=== PATIENT | male | born 1980 | race Hispanic/Latino ===

== ENCOUNTER 2017-01-04 15:23 | Emergency (ER) | payer SELFPAY ==
[~2017-01-04] VITALS: Ht 182.9 cm; Wt 159.1 kg
[~2017-01-04 15:23] MED LIST: HYDR-3090 PO; METH-313 PO; NAPR500T PO; NOMED
[2017-01-04 15:33] VITALS: BP 137/84; PULSE 116; RESP 20; O2SAT 98
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
[2017-01-04 16:00] LABS: BASOPHILS % (AUTO) 0.2 % (0-3); EOSINOPHILS % (AUTO) 0.3 % (0-5); Mean Corpuscular Hemoglobin 29.3 pg (27.0-35.0); Mean Corpuscular Volume 85.6 fL (81-100); NEUTROPHILS % (AUTO) 74.8 % (40-74); Platelet Count 179 bil/L (150-400)
[2017-01-04 16:22] LABS: Magnesium 1.8 mg/dL (1.6-2.6)
[2017-01-04 16:52] VITALS: PULSE 96; RESP 20; O2SAT 98
[2017-01-04 19:19] VITALS: BP 157/104; PULSE 92; RESP 16; O2SAT 99
== END 2017-01-04 19:54 | disposition home or self-care (01) ==
LOC: EDUNIT# 15:23 → SED 15:23 → EDBD 15:23 → SED 19:54
DX: F33.1 Major depressive disorder, recurrent, moderate (principal); F15.20 Other stimulant dependence, uncomplicated; F43.10 Post-traumatic stress disorder, unspecified; F17.200 Nicotine dependence, unspecified, uncomplicated